=== PATIENT | female | born 1970 | race Caucasian/White ===

== ENCOUNTER 2016-06-18 17:17 | Emergency (ER) | payer BC ==
[~2016-06-18] VITALS: Ht 157.5 cm; Wt 90.0 kg
[2016-06-18 19:12] LABS: BLOOD UREA NITROGEN 15 mg/dL (7-18)
[2016-06-18] MEDS ORDERED: KETOROLAC 30 MG/1 ML IM ONE (20:30)
[2016-06-18] MEDS ORDERED: SODIUM CHLORIDE 0.9% 1,000ML IVBOLUS ONE (20:30)
[2016-06-18] MEDS ORDERED: ALBUTEROL SULFATE 2.5 MG/3 ML NPPB ONE (20:30)
[2016-06-18] MEDS ORDERED: SODIUM CHLORIDE FLUSH 10ML SYR IVF ONE (20:30)
[2016-06-18] MEDS ORDERED: ALBUTEROL/IPRATROPIUM 2.5MG/0.5MG, 3 ML NPPB ONE (20:30)
[2016-06-18] MEDS ORDERED: KETOROLAC 30 MG/1 ML IVPush ONE (20:30)
[2016-06-18] MEDS ORDERED: KETOROLAC 30 MG/1 ML ONE (20:39)
[2016-06-18 21:52] VITALS: BP 115/78
== END 2016-06-18 22:14 ==
LOC: ED 21:35
DX: R10.31 Right lower quadrant pain (principal); Z88.0 Allergy status to penicillin
CPT/HCPCS: 36415; 74020; 74176; 76830; 80048; 81003; 82040; 84703; 85025; 96374; 99285; J1885; J7030